=== PATIENT | male | born 1965 | race African-American/Black ===

== ENCOUNTER 2017-06-02 00:47 | Emergency (ER) | payer OTHER ==
[~2017-06-02] VITALS: Ht 177.8 cm; Wt 140.0 kg
[~2017-06-02 00:47] MED LIST: HYDR-2768 PO; LISI-360 PO; LORT5TAB PO; LOVA40TA PO; LYRI150C PO; METF500 PO; TRAD5TAB SQ
[2017-06-02 00:50] VITALS: BP 145/97; PULSE 114; RESP 20; TEMP 97.5; O2SAT 96
[2017-06-02] MEDS ORDERED: HYDR-3516 PO (01:22)
[2017-06-02] MEDS ORDERED: TRAD5TAB PO (01:22)
[2017-06-02] MEDS ORDERED: ASPI-516 CHEW (01:22)
[2017-06-02] MEDS ORDERED: LYRI200C PO (01:22)
[2017-06-02] MEDS ORDERED: CANA1TAB2 PO (01:22)
[2017-06-02] MEDS ORDERED: LISI-515 PO (01:22)
[2017-06-02] MEDS ORDERED: LOVA40TA PO (01:22)
[2017-06-02] MEDS ORDERED: EXENINJ SQ (01:22)
--- NOTE | 2017-06-02 01:53 | PD ---
HPI Chief Complaint: Diabetic Time Seen by Provider: 01:52 Travel History International Travel<30 days: No Contact w/Intl Traveler<30days: No Traveled to known affect area: No History of Present Illness HPI 52-year-old male came to the emergency room with history of polyuria and polydipsia since yesterday noon. His is here with him. Patient is on disability and stays at home and does not have a vehicle. He waited for his to come home to get her to bring him to the emergency room. Patient does not have insurance and hence has not had his diabetic medications for over a week now. He checked her sugar at home and it read high. In the emergency room it was 470. No other symptoms. Patient is a type II diabetic. He was tachycardic upon arrival. He says his mouth has been feeling dry PFSH Past Medical History Narrative Medical List of his past medical, surgical, social and family history is reviewed from the nursing note. Hx Anticoagulant Therapy: Yes Arthritis: Yes Cardiovascular Problems: Yes (HTN) High Cholesterol: Yes Diabetes: Yes Patient Takes Glucophage: No Diminished Hearing: No Hypertension: Yes Musculoskeletal: Yes (CHRONIC BACK/NECK PAIN) Neurologic: Yes (NEUROPATHY) Migraines: Yes Sleep Apnea: Yes (CPAP) Past Surgical History Body Medical Devices: HX SLEEP APNEA USES CPAP AT NIGHT. Social History Alcohol Use: Yes (OCCASIONAL) Tobacco Use: No Substance Use: No Allergies-Medications (Allergen,Severity, Reaction): Coded Allergies: gabapentin (Unverified Allergy, Mild, HIVES, 06/02/17) metformin (Verified Allergy, Mild, Hives, 06/02/17) Comments List of his allergies reviewed from the nursing note. Reported Meds & Prescriptions Reported Meds & Active Scripts Active Glipizide 10 Mg Tab 10 Mg PO DAILY Take 30 minutes before a meal Reported Hydrocodone-Acetaminophen 5-325 mg Tab 1 Tab PO Q6H PRN Aspirin 81 Mg Chew 162 Mg CHEW DAILY Lovastatin 40 Mg Tab 40 Mg PO DAILY Lyrica (Pregabalin) 200 Mg Cap 200 Mg PO BID Lisinopril 20 Mg Tab 20 Mg PO DAILY Tradjenta (Linagliptin) 5 Mg Tab 5 Mg PO DAILY Invokamet (Canagliflozin-Metformin) 50-1,000 Mg Tab 1 Tab PO BID Take with meals. Avoid ethanol. Bydureon Inj (Exenatide) 2 Mg Vial 2 Mg SQ Q7D Narrative Medication List of his home medications reviewed from the nursing note. Review of Systems Except as stated in HPI: all other systems reviewed are Neg Endocrine: Positive: Polyuria, Polydipsia Physical Exam Narrative GENERAL: Awake, alert, obese, no obvious distress SKIN: Focused skin assessment warm/dry. Dry skin HEAD: Atraumatic. Normocephalic. EYES: Pupils equal and round. No scleral icterus. No injection or drainage. ENT: No nasal bleeding or discharge. Dry mucous membrane. NECK: Trachea midline. No JVD. CARDIOVASCULAR: Regular rate and rhythm. No murmur appreciated. RESPIRATORY: No accessory muscle use. Clear to auscultation. Breath sounds equal bilaterally. GASTROINTESTINAL: Abdomen soft, non-tender, nondistended. Hepatic and splenic margins not palpable. MUSCULOSKELETAL: No obvious deformities. No clubbing. No cyanosis. No edema. NEUROLOGICAL: Awake and alert. No obvious cranial nerve deficits. Motor grossly within normal limits. Normal speech. PSYCHIATRIC: Appropriate mood and affect; insight and judgment normal. Data Data Last Documented VS Orders Orders Complete Blood Count With Diff (06/02/17 01:34) Comprehensive Metabolic Panel (06/02/17 01:34) Beta Hydroxybutyrate (Acetone) (06/02/17 01:34) Urinalysis - C+S If Indicated (06/02/17 01:34) Ecg Monitoring (06/02/17 01:34) Iv Access Insert/Monitor (06/02/17 01:34) NPO (06/02/17 01:34) Sodium Chlor 0.9% 1000 Ml Inj (Ns 1000 M (06/02/17 02:15) Sodium Chlor 0.9% 1000 Ml Inj (Ns 1000 M (06/02/17 02:15) Insulin Human Regular Inj (Novolin R Inj (06/02/17 02:15) Blood Glucose (06/02/17 02:45) Insulin Human Regular Inj (Novolin R Inj (06/02/17 03:15) Sodium Chlor 0.9% 1000 Ml Inj (Ns 1000 M (06/02/17 03:30) Ed Discharge Order (06/02/17 04:21) Labs Laboratory Tests Test 06/02/17 01:30 06/02/17 02:00 White Blood Count 10.1 TH/MM3 Red Blood Count 5.45 MIL/MM3 Hemoglobin 16.5 GM/DL Hematocrit 47.6 % Mean Corpuscular Volume 87.4 FL Mean Corpuscular Hemoglobin 30.3 PG Mean Corpuscular Hemoglobin Concent 34.7 % Red Cell Distribution Width 14.1 % Platelet Count 248 TH/MM3 Mean Platelet Volume 8.8 FL Neutrophils (%) (Auto) 66.2 % Lymphocytes (%) (Auto) 23.3 % Monocytes (%) (Auto) 8.2 % Eosinophils (%) (Auto) 1.2 % Basophils (%) (Auto) 1.1 % Neutrophils # (Auto) 6.7 TH/MM3 Lymphocytes # (Auto) 2.3 TH/MM3 Monocytes # (Auto) 0.8 TH/MM3 Eosinophils # (Auto) 0.1 TH/MM3 Basophils # (Auto) 0.1 TH/MM3 CBC Comment DIFF FINAL Differential Comment Blood Urea Nitrogen 21 MG/DL Creatinine 1.13 MG/DL Random Glucose 470 MG/DL Total Protein 9.2 GM/DL Albumin 4.3 GM/DL Calcium Level 10.5 MG/DL Alkaline Phosphatase 108 U/L Aspartate Amino Transf (AST/SGOT) 43 U/L Alanine Aminotransferase (ALT/SGPT) 53 U/L Total Bilirubin 1.0 MG/DL Sodium Level 132 MEQ/L Potassium Level 4.4 MEQ/L Chloride Level 95 MEQ/L Carbon Dioxide Level 27.4 MEQ/L Anion Gap 10 MEQ/L Estimat Glomerular Filtration Rate 83 ML/MIN B-Hydroxybutyrate 1.15 MMOL/L Urine Color LIGHT-YELLOW Urine Turbidity CLEAR Urine pH 5.0 Urine Specific [place] 1.035 Urine Protein NEG mg/dL Urine Glucose (UA) 1000 mg/dL Urine Ketones 10 mg/dL Urine Occult Blood NEG Urine Nitrite NEG Urine Bilirubin NEG Urine Urobilinogen LESS THAN 2.0 MG/DL Urine Leukocyte Esterase NEG Urine RBC LESS THAN 1 /hpf Urine WBC 1 /hpf Urine Mucus FEW /lpf Microscopic Urinalysis Comment CULT NOT INDICATED MDM Medical Decision Making Medical Screen Exam Complete: Yes Emergency Medical Condition: Yes Medical Record Reviewed: Yes Differential Diagnosis Hyperglycemia, DKA Narrative Course 2:50 AM blood test results are back. Blood sugar is 450. Anion gap was not elevated. His acetone is slightly elevated and blood. Patient is getting 2 L of IV fluid bolus and I have ordered 10 units of subcutaneous regular insulin. Repeat blood sugar will be done shortly. 4:10 AM after getting a total of 15 units of regular insulin subcutaneous and 3 L of IV fluid bolus blood sugar has come down to 309. I'm comfortable discharging him home. Patient has no means to by the medication that he is on. I decided to give him a prescription of glipizide which is available at a very nominal rate in [facility]. Procedures EKG Prior to Arrival: No Diagnosis Primary Impression: Hyperglycemia Additional Impressions: Poorly controlled diabetes mellitus Noncompliance with medication regimen Referrals: Primary Care Physician Additional Instructions: Please take the medication as per the prescription direction. Continue taking a blood sugar. Strict diet control. Return to the ER if condition worsens or any other new concerns. Otherwise follow-up with your primary care. Med/Other Pt SpecificInfo: Prescription(s) given Scripts Glipizide (Glipizide) 10 Mg Tab 10 MG PO DAILY for Blood Sugar Management, #30 TAB 0 Refills Take 30 minutes before a meal Prov: Joanie Castle MD 06/02/17 Disposition: 01 DISCHARGE HOME Condition: Stable Joanie Castle MD Jun 02, 2017 01:53
[2017-06-02 01:57] LABS: AUTOMATED NEUTROPHIL # 6.7 TH/MM3 (1.8-7.7); BASOPHIL # 0.1 TH/MM3 (0-0.2); BASOPHIL % 1.1 % (0.0-2.0); EOSINOPHIL # 0.1 TH/MM3 (0-0.4); EOSINOPHIL % 1.2 % (0.0-4.0); HEMATOCRIT 47.6 % (39.0-51.0); HEMO FLAGS DIFF FINAL; LYMPH % 23.3 % (9.0-44.0); LYMPHOCYTE # 2.3 TH/MM3 (1.0-4.8); MEAN CELL VOLUME 87.4 FL (80.0-100.0); MEAN CORPUSCULAR HEMOGLOBIN 30.3 PG (27.0-34.0); MEAN CORPUSCULAR HGB CONC 34.7 % (32.0-36.0); MONO % 8.2 % (0.0-8.0); NEUT % 66.2 % (16.0-70.0); PLATELET COUNT 248 TH/MM3 (150-450); RED BLOOD COUNT 5.45 MIL/MM3 (4.50-5.90); RED CELL DISTRIBUTION WIDTH 14.1 % (11.6-17.2); WHITE BLOOD COUNT 10.1 TH/MM3 (4.0-11.0)
[2017-06-02 02:00] VITALS: BP 132/86; PULSE 108; RESP 18; O2SAT 98
[2017-06-02] MEDS ORDERED: INSULIN HUMAN REGULAR 1,000 UNITS/10 ML VIAL SQ ONE ×2 (02:15→03:15)
[2017-06-02] MEDS ORDERED: SODIUM CHLOR 0.9% 1000 ML INJ 1,000 ML IV ONE ×3 (02:15→03:30)
[2017-06-02 02:19] LABS: BLOOD, URINE NEG (NEG); COMMENT (UR) CULT NOT INDICATED; CULTURE IF INDICATED CULT NOT INDICATED; GLUCOSE,URINE 1000 mg/dL (NEG); KETONE, URINE 10 mg/dL (NEG); MUCUS URINE FEW /lpf (OCC); NITRITE,URINE NEG (NEG); URINE COLOR LIGHT-YELLOW (YELLW/STRAW)
[2017-06-02 02:31] LABS: ALKALINE PHOSPHATASE 108 U/L (45-117); ALT (GPT) 53 U/L (12-78); ANION GAP 10 MEQ/L (5-15); AST (GOT) 43 U/L (15-37); BETA-HYDROXYBUTYRATE 1.15 MMOL/L (0.00-0.39); BICARBONATE 27.4 MEQ/L (21.0-32.0); BLOOD UREA NITROGEN 21 MG/DL (7-18); CHLORIDE 95 MEQ/L (98-107); GLOMERULAR FILTRATION RATE 83 ML/MIN (>89); POTASSIUM 4.4 MEQ/L (3.5-5.1); SODIUM (NA) 132 MEQ/L (136-145)
[2017-06-02] MEDS ORDERED: GLIP10TA6 PO (03:59)
[2017-06-02 04:26] VITALS: BP 117/85
== END 2017-06-02 04:38 | disposition home or self-care (01) ==
LOC: NEPE 00:47
DX: E11.65 Type 2 diabetes mellitus with hyperglycemia (principal); Z91.14 Patient's other noncompliance with medication regimen; I10 Essential (primary) hypertension; E78.00 Pure hypercholesterolemia, unspecified; Z79.84 Long term (current) use of oral hypoglycemic drugs; Z79.4 Long term (current) use of insulin; Z79.899 Other long term (current) drug therapy
CPT/HCPCS: 80053; 81001; 82010; 85025; 96360; 96361; 96372; 99284; J1815; J7030

== ENCOUNTER 2017-11-11 21:59 | Emergency (ER) | payer OTHER ==
[~2017-11-11] VITALS: Ht 177.8 cm; Wt 119.5 kg
[~2017-11-11 21:59] MED LIST changes: +ASPI-516 CHEW; +CANA1TAB2 PO; +EXENINJ SQ; +GLIP10TA6 PO; -HYDR-2768 PO; +HYDR-3516 PO; -LISI-360 PO; +LISI-515 PO; -LORT5TAB PO; -LYRI150C PO; +LYRI200C PO; -METF500 PO; +TRAD5TAB PO; -TRAD5TAB SQ
[2017-11-11 22:24] VITALS: BP 133/70; PULSE 85; RESP 16; TEMP 98.2; O2SAT 98
[2017-11-11] MEDS ORDERED: SODIUM CHLOR 0.9% 1000 ML INJ 1,000 ML IV ONE (23:45)
[2017-11-11] MEDS ORDERED: SODIUM CHLOR 0.9% 1000 ML INJ 1,000 ML IV SCH (23:45)
[2017-11-11 23:56] LABS: AUTOMATED NEUTROPHIL # 3.6 TH/MM3 (1.8-7.7); BASOPHIL % 0.8 % (0.0-2.0); EOSINOPHIL # 0.1 TH/MM3 (0-0.4); EOSINOPHIL % 1.3 % (0.0-4.0); HEMATOCRIT 42.3 % (39.0-51.0); HEMOGLOBIN 14.7 GM/DL (13.0-17.0); LYMPH % 29.8 % (9.0-44.0); LYMPHOCYTE # 1.8 TH/MM3 (1.0-4.8); MEAN CELL VOLUME 87.7 FL (80.0-100.0); MEAN CORPUSCULAR HEMOGLOBIN 30.4 PG (27.0-34.0); MEAN CORPUSCULAR HGB CONC 34.6 % (32.0-36.0); MEAN PLATELET VOLUME 8.5 FL (7.0-11.0); MONO % 9.7 % (0.0-8.0); MONOCYTE # 0.6 TH/MM3 (0-0.9); NEUT % 58.4 % (16.0-70.0); PLATELET COUNT 245 TH/MM3 (150-450); RED BLOOD COUNT 4.83 MIL/MM3 (4.50-5.90); RED CELL DISTRIBUTION WIDTH 13.6 % (11.6-17.2); WHITE BLOOD COUNT 6.1 TH/MM3 (4.0-11.0)
[2017-11-12 00:15] LABS: ALBUMIN 3.7 GM/DL (3.4-5.0); ALKALINE PHOSPHATASE 92 U/L (45-117); ALT (GPT) 42 U/L (12-78); AST (GOT) 18 U/L (15-37); BICARBONATE 27.1 MEQ/L (21.0-32.0); BLOOD UREA NITROGEN 12 MG/DL (7-18); CALCIUM 9.3 MG/DL (8.5-10.1); CHLORIDE 101 MEQ/L (98-107); CREATININE 0.87 MG/DL (0.60-1.30); GLOMERULAR FILTRATION RATE 112 ML/MIN (>89); GLUCOSE,RANDOM 403 MG/DL (74-106); SODIUM (NA) 139 MEQ/L (136-145); TOTAL BILIRUBIN ADULT 0.8 MG/DL (0.2-1.0); TOTAL PROTEIN 7.5 GM/DL (6.4-8.2)
[2017-11-12] MEDS ORDERED: LISI20TA PO (00:19)
[2017-11-12] MEDS ORDERED: HYDR-3516 PO (00:19)
[2017-11-12] MEDS ORDERED: METF1000 PO (00:20)
[2017-11-12] MEDS ORDERED: INSULIN HUMAN REGULAR 1,000 UNITS/10 ML VIAL OTHER ONE (00:45)
--- NOTE | 2017-11-12 01:31 | PD ---
HPI Chief Complaint: Diabetic Time Seen by Provider: 23:37 Travel History International Travel<30 days: No Contact w/Intl Traveler<30days: No Traveled to known affect area: No History of Present Illness HPI This is a 52 year old male who presents to the emergency department with history of poorly controlled diabetes who presents to the emergency department with high blood sugar. He has been thirsty and has been urinating more often. His symptoms been constant going on for the past week, severe. He is following up with primary care doctor who is referring him to an swing grinder because he is having difficulty controlling him on oral medications. The patient has difficulty telling me exactly what medications he is on but says he took them today. PFSH Past Medical History Hx Anticoagulant Therapy: Yes Arthritis: Yes Cardiovascular Problems: Yes (HTN, high Cholesterol) High Cholesterol: Yes Cerebrovascular Accident: Yes ("Mini stroke") Diabetes: Yes (Metformin) Patient Takes Glucophage: Yes Diminished Hearing: No Hypertension: Yes Musculoskeletal: Yes (CHRONIC BACK/NECK PAIN) Neurologic: Yes (NEUROPATHY) Migraines: Yes Sleep Apnea: Yes (CPAP) Past Surgical History Body Medical Devices: HX SLEEP APNEA USES CPAP AT NIGHT. Social History Alcohol Use: Yes (OCCASIONAL) Tobacco Use: No Substance Use: No Allergies-Medications (Allergen,Severity, Reaction): Coded Allergies: gabapentin (Unverified Allergy, Mild, HIVES, 11/11/17) metformin (Verified Allergy, Mild, Hives, 11/12/17) "STATES HE ISN'T ALLERGIC TO METFORMIN SINCE HE TAKES 1000MG BID OF METFORMIN WITHOUT ANY ISSUES; PT WAS HAVING ISSUES WHEN HE WAS ON INVOKAMET BUT HE NO LONGER TAKES IT"~11/12/17 Reported Meds & Prescriptions Reported Meds & Active Scripts Active Reported Metformin (Metformin HCl) 1,000 Mg Tab 1,000 Mg PO BIDPC Lisinopril-Hctz 20-12.5 mg Tab (Lisinopril/Hydrochlorothiazide) 20 Mg-12.5 Mg Tablet 1 Tab PO DAILY Hydrocodone-Acetamin 5-325 mg (Hydrocodone/Acetaminophen) 5 Mg-325 Mg Tablet 1 Tab PO BID Aspirin 81 Mg Chew 162 Mg CHEW DAILY Lovastatin 40 Mg Tab 40 Mg PO DAILY Lyrica (Pregabalin) 200 Mg Cap 200 Mg PO BID Tradjenta (Linagliptin) 5 Mg Tab 5 Mg PO DAILY Bydureon Inj (Exenatide) 2 Mg Vial 2 Mg SQ Q7D Review of Systems Except as stated in HPI: all other systems reviewed are Neg Physical Exam Narrative GENERAL:Well appearing, no acute distress SKIN: Focused skin assessment warm and dry. HEAD: Atraumatic. Normocephalic. EYES: Pupils equal and round. No injection or drainage. ENT: Moist mucous membranes NECK: Trachea midline. CARDIOVASCULAR: Regular rate and rhythm. No murmur appreciated. RESPIRATORY: Clear to auscultation. Breath sounds equal bilaterally. GASTROINTESTINAL: Abdomen soft, non-tender, nondistended. MUSCULOSKELETAL: No obvious deformities. NEUROLOGICAL: Awake and alert. No obvious cranial nerve deficits. Moving all extremities. PSYCHIATRIC: Appropriate mood and affect; insight and judgment normal. Data Data Last Documented VS Vital Signs Date Time Temp Pulse Resp B/P (MAP) Pulse Ox O2 Delivery O2 Flow Rate FiO2 11/11/17 22:24 98.2 85 16 133/70 (91) 98 Orders Orders Complete Blood Count With Diff (11/11/17 23:37) Comprehensive Metabolic Panel (11/11/17 23:37) ^ Insert Iv (11/11/17 23:37) Sodium Chlor 0.9% 1000 Ml Inj (Ns 1000 M (11/11/17 23:45) Sodium Chlor 0.9% 1000 Ml Inj (Ns 1000 M (11/11/17 23:45) Insulin Human Regular Inj (Novolin R Inj (11/12/17 00:45) Labs Laboratory Tests Test 11/11/17 23:45 White Blood Count 6.1 TH/MM3 Red Blood Count 4.83 MIL/MM3 Hemoglobin 14.7 GM/DL Hematocrit 42.3 % Mean Corpuscular Volume 87.7 FL Mean Corpuscular Hemoglobin 30.4 PG Mean Corpuscular Hemoglobin Concent 34.6 % Red Cell Distribution Width 13.6 % Platelet Count 245 TH/MM3 Mean Platelet Volume 8.5 FL Neutrophils (%) (Auto) 58.4 % Lymphocytes (%) (Auto) 29.8 % Monocytes (%) (Auto) 9.7 % Eosinophils (%) (Auto) 1.3 % Basophils (%) (Auto) 0.8 % Neutrophils # (Auto) 3.6 TH/MM3 Lymphocytes # (Auto) 1.8 TH/MM3 Monocytes # (Auto) 0.6 TH/MM3 Eosinophils # (Auto) 0.1 TH/MM3 Basophils # (Auto) 0.0 TH/MM3 CBC Comment DIFF FINAL Differential Comment Blood Urea Nitrogen 12 MG/DL Creatinine 0.87 MG/DL Random Glucose 403 MG/DL Total Protein 7.5 GM/DL Albumin 3.7 GM/DL Calcium Level 9.3 MG/DL Alkaline Phosphatase 92 U/L Aspartate Amino Transf (AST/SGOT) 18 U/L Alanine Aminotransferase (ALT/SGPT) 42 U/L Total Bilirubin 0.8 MG/DL Sodium Level 139 MEQ/L Potassium Level 3.9 MEQ/L Chloride Level 101 MEQ/L Carbon Dioxide Level 27.1 MEQ/L Anion Gap 11 MEQ/L Estimat Glomerular Filtration Rate 112 ML/MIN MDM Medical Decision Making Medical Screen Exam Complete: Yes Emergency Medical Condition: Yes Interpretation(s) No leukocytosis Hyperglycemia Differential Diagnosis Hyperglycemia, diabetic ketoacidosis, dehydration, electrolyte abnormality Narrative Course This is a 52-year-old male who presents to the emergency department with high blood sugar. He was placed on a monitor and an IV was established. Labs demonstrate hyperglycemia. He was given 2 L of IV fluid and IV insulin. I am hesitant to make changes to his medication regimen as I do not think his history is completely reliable and I am not convinced he has been compliant. He has a referral to an swing grinder which I think will benefit him. Patient was given some dietary counseling and was discharged home. Diagnosis Primary Impression: Hyperglycemia Patient Instructions: General Instructions Additional Instructions: If you develop severe chest pain, shortness of breath, sweating, lightheadedness , dizziness or difficulty breathing return to the emergency department immediately. Followup with your primary care physician in 2-3 days if your symptoms are not resolved. Med/Other Pt SpecificInfo: No Change to Meds Disposition: 01 DISCHARGE HOME Condition: Stable Juliette Townsend MD November 12, 2017 01:31
[2017-11-12 01:41] VITALS: PULSE 74; RESP 12; O2SAT 98
== END 2017-11-12 02:30 | disposition home or self-care (01) ==
LOC: NEPC 21:59
DX: E11.65 Type 2 diabetes mellitus with hyperglycemia (principal); E78.00 Pure hypercholesterolemia, unspecified; I10 Essential (primary) hypertension; Z79.84 Long term (current) use of oral hypoglycemic drugs
CPT/HCPCS: 80053; 85025; 96361; 96374; 99284; J1815; J7030